=== PATIENT | female | born 1950 | race Caucasian/White ===

== ENCOUNTER 2017-02-23 11:22 | Emergency (ER) | payer BC, OTHER ==
[~2017-02-23] VITALS: Ht 162.6 cm; Wt 72.6 kg
[2017-02-23 14:53] VITALS: BP 144/93
== END 2017-02-23 14:53 | disposition home or self-care (01) ==
LOC: ED 11:22
DX: R07.89 Other chest pain (principal)
CPT/HCPCS: J1885